=== PATIENT | male | born 1985 | race African-American/Black ===

== ENCOUNTER 2019-08-05 08:14 | Emergency (ER) | payer OTHER, SELFPAY ==
[2019-08-05 08:38] VITALS: BP 153/106; PULSE 92; RESP 18; TEMP 36.8; O2SAT 99
--- NOTE | 2019-08-05 08:46 | ED.HA ---
HPI - Headache General Chief Complaint: Urogenital-Male <DESI Barrera Last Filed: 08/05/19 09:49> Stated Complaint: MULT C/O <DESI Barrera Last Filed: 08/05/19 09:49> Time Seen by Provider: 08/05/19 08:32 <DESI Barrera Last Filed: 08/05/19 09:49> Source: patient <DESI Barrera Last Filed: 08/05/19 09:49> Mode of arrival: ambulatory <DESI Barrera Last Filed: 08/05/19 09:49> Limitations: no limitations <DESI Barrera Last Filed: 08/05/19 09:49> History of Present Illness HPI Narrative: This is a 34 year old male that presents to the ER for headache since last night. Reports pounding headache with blurry vision. Reports he has not taken anything for his symptoms. Also reports a toothache since last night. Reports a cracked tooth. Also reports that he was recently told by a sexual partner that they had chlamydia. Reports that over the last 5 days he has been having some penile discharge. Reports some burning with urination. Denies fever, cough, chest pain, shortness of breath, sore throat, vomiting, numbness, weakness, or abnormal penile lesions. <Yasmin Lemos PA-C - Last Filed: 08/05/19 09:49> Related Data Allergies/Adverse Reactions: Allergies Allergy/AdvReac Type Severity Reaction Status Date / Time No Known Allergies Allergy Verified 08/05/19 08:41 <DESI Barrera Last Filed: 08/05/19 09:49> Review of Systems Review of Systems: All systems reviewed & are unremarkable except as noted in HPI and below <DESI Barrera Last Filed: 08/05/19 09:49> Constitutional: Constitutional: Denies chills, Denies fever(s) and Denies weakness <DESI Barrera Last Filed: 08/05/19 09:49> Eyes: Eyes: Reports change in vision (blurry vision with headache) <DESI Barrera Last Filed: 08/05/19 09:49> ENT: Denies nasal congestion and Denies sore throat <DESI Barrera Last Filed: 08/05/19 09:49> Comments: Reports rhinorrhea <DESI Barrera Last Filed: 08/05/19 09:49> Cardiovascular: Cardiovascular: Denies chest pain <DESI Barrera Last Filed: 08/05/19 09:49> Respiratory: Respiratory: Denies cough and Denies dyspnea <DESI Barrera Last Filed: 08/05/19 09:49> Gastrointestinal: Gastrointestinal: Denies vomiting <DESI Barrera Last Filed: 08/05/19 09:49> Genitourinary: Genitourinary: Denies hematuria, Denies genital lesions, Reports dysuria and Reports penile discharge <DESI Barrera Last Filed: 08/05/19 09:49> Neurologic: Reports headache(s), Denies focal weakness and Denies numbness <DESI Barrera Last Filed: 08/05/19 09:49> [facility] Social History Social History: Social History (Updated 05/24/19 @ 21:33 by Doni Sheppard) Smoking packs per day: 1 Smoking cigarettes per day: 20.0 Smoking status: Current every day smoker Tobacco type: cigarettes Substance use: current Substance use type: marijuana and crack/cocaine Gender identity (if verbalized by the patient): Male <DESI Barrera Last Filed: 08/05/19 09:49> Exam Const: General: healthy appearing, no acute distress and alert <DESI Barrera Last Filed: 08/05/19 09:49> HENMT: Ears: Abnormal EAC present (moderate cerumen bilaterally) <DESI Barrera Last Filed: 08/05/19 09:49> Mouth: Yes Normal oral and palatal mucosa present <DESI Barrera Last Filed: 08/05/19 09:49> Teeth and gingiva: abnormal tooth and associated gingiva (tooth #5 is cracked, tender to palpation without surrounding erythema ) <DESI Barrera Last Filed: 08/05/19 09:49> Throat: posterior oropharynx normal and uvula midline <DESI Barrera Last Filed: 08/05/19 09:49> Eyes: Conjunctivae: conjunctivae normal <DESI Barrera Last Filed: 08/05/19 09:49> Pupils: Equal, round and reactive pupils present <Yasmin Youssef
[2019-08-05 09:08] LABS: Add Urine Microscopic? NO; Appearance Urine Clear (Clear); Bilirubin Urine Negative (Negative); Blood Urine Negative (Negative); Color Urine Yellow (Yellow); Glucose Urine UA Negative (Negative); Ketones Urine Negative (Negative); Leukocyte Esterase Ur Negative LEU/UL (Negative); Nitrate Urine Negative (Negative); Protein Urine Negative (Negative); Specific Grav Ur 1.015 (1.001-1.035); Urobilinogen Urine Negative mg/dL (<2.0)
[2019-08-05] MEDS: ACETAMINOPHEN 500 MG TABLET 1000 MG PO (09:20)
[2019-08-05] MEDS: KETOROLAC (*BKC) 60 MG/2 ML VIAL IM (09:21)
[2019-08-05] MEDS: cefTRIAXone 250 MG VIAL IM (09:47)
[2019-08-05] MEDS: metroNIDAZOLE 250 MG TABLET 2000 MG PO (09:48)
[2019-08-05] MEDS: LIDOCAINE HCL 1% LOCAL INJ 20 ML VIAL (09:48)
[2019-08-05] MEDS: AZITHROMYCIN 250 MG TABLET 1000 MG PO (09:48)
[2019-08-05 10:10] VITALS: BP 150/89; PULSE 86; RESP 16; O2SAT 98
== END 2019-08-05 10:11 | disposition home or self-care (01) ==
PROVIDERS: Physician Assistant; Emergency Provider Emergency Medicine
DX: G44.209 Tension-type headache, unspecified, not intractable (principal); K08.89 Other specified disorders of teeth and supporting structures; Z20.2 Contact with and (suspected) exposure to infections with a predominantly sexual mode of transmission; F17.210 Nicotine dependence, cigarettes, uncomplicated
CPT/HCPCS: 81003; 87491; 87591; 87661; 96372; 99284; A9270; J0696; J1885

== ENCOUNTER 2019-12-14 16:06 | Emergency (ER) | payer OTHER, SELFPAY ==
[2019-12-14 16:23] VITALS: BP 138/84; PULSE 106; RESP 16; TEMP 36.2; O2SAT 99
--- NOTE | 2019-12-14 16:34 | ED.GENADULT ---
HPI - General Adult General Chief complaint: Dental/Oral Stated complaint: swollen upper right gum Time Seen by Provider: 12/14/19 16:34 Source: patient Mode of arrival: ambulatory Limitations: no limitations History of Present Illness HPI narrative: 34-year-old male patient presents to the [facility] with complaints of right upper dental pain for the past 2 weeks. Patient states he knows he has a bad tooth but has not seen his dentist yet. Patient states the pain got really bad last night. Patient states he did take some Tylenol yesterday but states it really did not help with the pain. Patient denies any fevers, sore throat, chest pain or shortness of breath. Patient presents today also complaining of pain with urination and penile discharge for the last couple weeks. Patient denies any lesions or rashes. Patient states that he is with 1 partner but does not use protection all the time. Patient states that he has been having some yellow discharge and is concerned about possible STDs. Related Data Home Medications Medication Instructions Recorded Confirmed albuterol sulfate [ProAir HFA] INHALATION 12/14/19 Allergies Allergy/AdvReac Type Severity Reaction Status Date / Time No Known Allergies Allergy Verified 08/05/19 08:41 Review of Systems Review of Systems: Narrative: CONSTITUTIONAL: Denies fever, chills, or sweats. EYES: Denies visual changes, redness, or discharge. ENT: Denies rhinorrhea, congestion, sore throat, or otalgia. Positive right upper dental pain CARDIOVASCULAR: Denies chest pain, palpitations, or edema. RESPIRATORY: Denies cough or dyspnea. GASTROINTESTINAL: Denies abdominal pain, nausea, vomiting, or diarrhea. GENITOURINARY: Denies dysuria or hematuria. Positive pain with urination and penile discharge SKIN: Denies rash or itching. MUSCULOSKELETAL: Denies back pain, joint pain, or myalgia. NEUROLOGIC: Denies headache, numbness, or weakness. PSYCHIATRIC: Denies anxiety or depression. [facility] Past Medical History Medical History Anxiety Asthma Bronchitis Depression Genital warts GERD (gastroesophageal reflux disease) Gonorrhea History of bipolar disorder IBS (irritable bowel syndrome) Surgical History Surgical History History of urologic surgery Social History Social History Smoking packs per day: 1 Smoking cigarettes per day: 20.0 Smoking status: Current every day smoker Tobacco type: cigarettes Substance use: current Substance use type: marijuana and crack/cocaine Gender identity (if verbalized by the patient): Male Comments At the time of my signature I agree with nursing past medical history, surgical, social, and family history. There is no relevant family history pertinent to the presenting complaint. Exam Narrative: Exam Narrative: GENERAL: Well-appearing, well-nourished, and in no acute distress. HEAD: Normocephalic, atraumatic. EYES: PERRLA and EOMI. ENT: Nares clear, no rhinorrhea or epistaxis. Mucous membranes moist. Patient has slight erythema and tenderness noted to the right upper gum right above the right sided incisors. There is no obvious abscess palpated at this time. NECK: Supple. No lymphadenopathy CHEST: Clear to auscultation. No respiratory distress. HEART: Regular rate and rhythm. No murmur heard. Normal peripheral pulses. ABDOMEN: Soft, flat, nondistended. No guarding, rebound tenderness, or rigid. No pulsatilla masses. Slight discomfort noted to left lower quadrant abdominal palpation. Bowel sounds present in all four quadrants. No organomegaly. Negative Tariq?s sign. No periumbicial tenderness. No Supra public tenderness or distension. Good femoral pulses bilaterally. No hernia noted. No scars or surface trauma. No CVA tenderness on percussion EXTREMITIES: Normal range of motion. No
[2019-12-14] MEDS: AZITHROMYCIN 250 MG TABLET 1000 MG PO (17:00)
[2019-12-14] MEDS: cefTRIAXone 250 MG VIAL IM (17:00)
[2019-12-14] MEDS: LIDOCAINE HCL 1% LOCAL INJ 20 ML VIAL IM (17:01)
== END 2019-12-14 17:25 | disposition home or self-care (01) ==
PROVIDERS: Emergency Provider Nurse Practitioner Family
DX: K02.9 Dental caries, unspecified (principal); R03.0 Elevated blood-pressure reading, without diagnosis of hypertension; R36.9 Urethral discharge, unspecified; J45.909 Unspecified asthma, uncomplicated; F17.210 Nicotine dependence, cigarettes, uncomplicated
CPT/HCPCS: 81003; 87491; 87591; 87661; 96372; 99213; A9270; G0463; J0696

== ENCOUNTER 2020-05-16 15:07 | Inpatient (IN) | payer OTHER, SELFPAY ==
--- NOTE | ~2020-05-16 | XR_ITS ---
EXAMINATION: XR chest 1V portable DATE: 05/17/2020 09:09 INDICATION: Inflammation of the lungs. TECHNIQUE: A single frontal view of the chest was obtained on 2 radiographs. COMPARISON: Chest 2 views 02/04/2019, CT abdomen and pelvis 05/16/2020 FINDINGS: Again seen is mild scarring in the upper lobes. No pleural effusion or pneumothorax. The he art size is normal. IMPRESSION: 1. Mild scarring in the upper lobes. Reviewed, dictated and finalized at location A. D ATTENDANT
--- NOTE | ~2020-05-16 | CT_ITS ---
EXAMINATION: CT abdomen pelvis w con DATE: 05/16/2020 16:29 INDICATION: Right-sided abdominal pain and back pain. Constipation and nausea. TECHNIQUE: Computed tomography (CT) of the abdomen and pelvis was performed with 100 mL Omnipaque 350 intravenous contrast. Automated exposure control and iterative reconstruction technique were employe d. The dose-length product was 1064.53 mGy-cm. COMPARISON: CT abdomen and pelvis 10/30/2012 FINDINGS: The visualized portions of the lung bases demonstrate mild atelectasis and scarring. There are mild tree-in-bud opacities in the lower lobes, right middle lobe, and lingula, consistent with in flammation versus infection. No pleural effusion. The heart size is normal. No pericardial effusion. The liver, gallbladder, spleen, pancreas, and adrenal glands are normal. There is cortical thinning o f the kidneys. There are cysts in the kidneys measuring up to 5 mm. There are no dilated loops of bow el. The appendix is normal. There are no pathologically enlarged lymph nodes. There is no free intrap eritoneal fluid. There is mild lumbar spondylosis. IMPRESSION: 1. No specific etiology for the patient's symptoms. 2. Mild bilateral lung disease that may be inflammation or infection. Note that this pattern is not s uspicious for COVID-19 pneumonia. Reviewed, dictated and finalized at location A. GRINDER SET UP OPERATOR IMPRESSION: 1. No specific etiology for the patient's symptoms. 2. Mild bilateral lung disease that may be inflammation or infection. Note that this pattern is not suspicious for COVID-19 pneumonia.
--- NOTE | ~2020-05-16 | US_ITS ---
US right upper quadrant INDICATION: Pancreatitis PROCEDURE: Realtime right upper abdominal ultrasound. COMPARISON: No prior studies for comparison. FINDINGS: The pancreas is normal without focal mass or pancreatic ductal dilation. There is a small 5 mm echogenic mass right hepatic lobe, most likely benign hemangioma. There is normal directional f low in the portal vein. The gallbladder is normal without stones, gallbladder wall thickening or pericholecystic fluid. Comm on bile duct measures 2 mm. No sonographic Tariq's sign. Right renal echotexture is unremarkable. IMPRESSION: 1: 5 mm echogenic mass right hepatic lobe, most likely benign hemangioma. Recommend follow-up ultraso und in 6-12 months to assess stability. Reviewed, dictated and finalized at location A. TRUCKER IMPRESSION: 1: 5 mm echogenic mass right hepatic lobe, most likely benign hemangioma. Recom mend follow-up ultrasound in 6-12 months to assess stability.
[2020-05-16 15:14] VITALS: BP 138/90; PULSE 83; RESP 18; TEMP 36.9; O2SAT 98
[2020-05-16 15:37] LABS: Basophils Percent Auto 0.7 % (0.2-1.2); Eosinophils Absolute Auto 0.3 K/mm3 (0-0.3); Eosinophils Percent Auto 4.7 % (0-4.4); Hemoglobin 16.1 g/dL (14.0-18.0); Immature Granulocyte Absolute 0.01 K/mm3 (0.00-0.031); Immature Granulocyte Percent A 0.2 % (0-0.5); Lymphocytes Absolute Auto 2.86 K/mm3 (0.9-3.2); Lymphocytes Percent Auto 46.5 % (18.3-44.2); Mean Corpuscular HGB Conc 33.5 g/dl (32-36); Mean Corpuscular Hemoglobin 29.5 pg (26-34); Mean Corpuscular Volume 87.9 fl (80-100); Mean Platelet Volume 9.1 fl (7.4-10.4); Monocytes Absolute Auto 0.5 K/mm3 (0.1-0.6); Monocytes Percent Auto 8.1 % (2.6-8.5); Neutrophils Absolute Auto 2.5 K/mm3 (1.3-6.7); Neutrophils Percent Auto 39.8 % (45.5-73.1); Platelet Count Result 231 k/mm3 (150-375); Red Blood Count 5.46 M/mm3 (4.6-6.20); Red Cell Distribution Width 11.9 % (11.5-14.5); White Blood Count 6.2 K/mm3 (4.5-10.0)
[2020-05-16 15:38] LABS: Add Urine Microscopic? NO; Appearance Urine Clear (Clear); Bilirubin Urine Negative (Negative); Blood Urine Negative (Negative); Color Urine Yellow (Yellow); Glucose Urine UA Negative (Negative); Ketones Urine Negative (Negative); Leukocyte Esterase Ur Negative LEU/UL (Negative); Nitrate Urine Negative (Negative); Protein Urine Negative (Negative); Specific Grav Ur 1.024 (1.001-1.035); Urobilinogen Urine Negative mg/dL (<2.0)
[2020-05-16] MEDS: SODIUM CHLORIDE 0.9% IV 1,000 ML 999 ML IV CONT ×2 (15:43→17:17)
[2020-05-16] MEDS: KETOROLAC 30 MG/ML VIAL (*BKC) IV PUSH (15:44)
[2020-05-16] MEDS: ONDANSETRON INJ 4 MG/2 ML VIAL IV PUSH (15:44)
[2020-05-16 15:50] LABS: Alanine Aminotransferase 24 U/L (4-50); Albumin Level 4.3 g/dL (3.5-5.1); Alkaline Phosphatase 50 U/L (38-126); Anion Gap 6 mmol/L (8-16); Aspartate Amino Transferase 25 U/L (17-59); Bilirubin,Total 1.3 mg/dL (0.2-1.3); Blood Urea Nitrogen 10 mg/dL (9-20); Calcium 9.4 mg/dL (8.4-10.2); Carbon Dioxide 29 mmol/L (22-30); Chloride 105 mmol/L (98-107); Estimated CRCL calculation 131 ml/min; Estimated Glomerular Filt Rate > 60; Glucose 98 mg/dL (75-110); Lipase 1888 U/L (23-300); Sodium 140 mmol/L (137-145)
--- NOTE | 2020-05-16 16:12 | ED.GENADULT ---
HPI - General Adult General Chief complaint: Abdominal Pain Stated complaint: lower back pain/ alot of gas in ABD 2 weeks Time Seen by Provider: 05/16/20 15:20 Source: RN notes reviewed History of Present Illness HPI narrative: Patient presents emergency department from home for abdominal pain. Patient states symptoms began 10 days ago. Pain is located cross the upper mid abdomen with radiation to the back. States his associate with nausea any fevers or chills chest pain shortness of breath vomiting diarrhea or any other symptoms. Patient states he has been taking [id number] medication for pain at home but does not take anything today Related Data Home Medications Medication Instructions Recorded Confirmed albuterol sulfate [ProAir HFA] INHALATION 12/14/19 Allergies Allergy/AdvReac Type Severity Reaction Status Date / Time No Known Allergies Allergy Verified 05/16/20 15:23 Review of Systems Review of Systems: Narrative: Gen.: Denies fevers or chills ENT: Denies congestion Respiratory: Denies shortness of breath or cough CV: Denies chest pain or palpitations GI: See HPI denies burning, urgency, frequency or hematuria Musculoskeletal: Denies back pain or muscle pain Neuro: Denies numbness, tingling, weakness or focal weakness Skin: Denies rash Except as documented, all other systems reviewed and negative [facility] Past Medical History Medical History (Updated 05/16/20 @ 16:57 by Jeremy Schumacher DO) Anxiety Asthma Bronchitis Depression Genital warts GERD (gastroesophageal reflux disease) Gonorrhea History of bipolar disorder IBS (irritable bowel syndrome) Surgical History Surgical History History of urologic surgery Social History Social History Smoking packs per day: 1 Smoking cigarettes per day: 20.0 Smoking status: Current every day smoker Tobacco type: cigarettes Substance use: current Substance use type: marijuana and crack/cocaine Gender identity (if verbalized by the patient): Male Exam Narrative: Exam Narrative: APPEARANCE: No acute distress, nontoxic, resting in bed HEENT: Normocephalic, atraumatic, OMM RESPIRATORY: No respiratory distress, clear to auscultation bilaterally with no rhonchi wheezing or rales CARDIOVASCULAR: RRR s murmur ABDOMINAL: Soft, nondistended, temporal patient epigastric, right upper quadrant left lower quadrant no tenderness right lower quadrant left lower quadrant no rebound or guarding MUSCULOSKELETAl: Moves all extremities. No clubbing, cyanosis or edema. NEURO: Awake and alert. Following commands, speech normal, no focal deficits SKIN:: Warm, dry. Normal Color PSYCHIATRIC: Normal affect/mood Course Course Emergency Course: Discussed with patient he denies any regular alcohol use or NSAID use At this time patient is also noticing concern of STD. States he had protected sex several weeks ago and states he has been having some burning with urination and requesting treatment at this time secondary to the patient's pancreatitis I will obtain a urine chlamydia and gonorrhea RNA test will hold p.o. azithromycin until pancreatitis is improved Discussed with SANDRA Zuniga for Dr. Mclain presentation work-up agrees with admission at this time. We did discuss the patient's concern of STD RNA testing has been sent and they will treat the patient following treatment of his pancreatitis Discussed with patient results of work-up and diagnosis discussed need for admission agrees at this time all questions answered Vital Signs Vital signs: Vital Signs Temperature 98.4 F 05/16/20 15:14 Pulse Rate 83 05/16/20 15:14 Respiratory Rate 18 05/16/20 15:14 Blood Pressure 138/90 05/16/20 15:14 Pulse Oximetry 98 05/16/20 15:14 Temperature 98.4 F 05/16/20 15:14 Pulse Rate 83 05/16/20 15:14 Respiratory Rate 18 05/16/20 15:14 Blo
[2020-05-16 17:28] VITALS: BP 136/88; PULSE 88; RESP 16; O2SAT 100
[2020-05-16 18:10] VITALS: BMI 32.6
[2020-05-16] MEDS: SODIUM CHLORIDE 0.9% IV 1,000 ML 150 ML IV CONT (18:15)
[2020-05-16 18:25] VITALS: PULSE 61; RESP 18; O2SAT 100
[2020-05-16 18:46] VITALS: BP 122/74; PULSE 61; RESP 18; TEMP 37.1; O2SAT 100
[2020-05-16 22:45] VITALS: BP 123/82; PULSE 67; RESP 16; TEMP 37.2; O2SAT 97
--- NOTE | 2020-05-16 23:45 | PM.IMHP ---
H&P: HPI History of Present Illness Date/Time: 05/16/20 23:45 Chief Complaint: Abdominal pain Narrative: Rohith Bardales is a 34 year old male who stated that he used to drink heavily. But not every day. The patient stated he drank about 1 week ago very heavily. He stated that he did developed this abdominal pain shortly after that. The patient stated that every time he ate something felt distended and felt that there was a knot in his epigastric area. By not eating he made himself feel better. The patient stated he has a or drink anything in a couple days. He was nauseated but did not vomit or have any diarrhea not had any fever chills. The patient has had Trichomonas and chlamydia in the past and was treated for that in the past. Patient stated he recently had unprotected sex and he is having discharge and burning when he urinates he feels as though he may have a sexually transmitted disease. Patient was given his prescription for oral antibiotics when he is discharged. However did not give him any antibiotics at this time and he has cultures that are pending. Patient was made NPO and he requested some ice chips so I was able to provide was some ice chips. However explained to him that if he had any further discomfort that we would hold off on given him any more ice chips. We will check his lipase in the morning. The patient still has a gallbladder on but has not had any problems with his gallbladder in the past. He has not had any hyperlipidemia either. The only medical problem the patient has his asthma and occasionally uses an inhaler. The patient does use marijuana but denies using any crack or cocaine. He said he has used cocaine in the past but not recently. Pain is in his upper abdomen echo Amando to his back. The patient has been afebrile. CT of the abdomen pelvis read no specific etiology for patient's symptoms. Mild bilateral lung disease that may be inflammation or infection note that this pattern is not suspicious for covid 19 pneumonia. Patient's lipase was noted to be 1888. The patient has not had any emesis he has been nauseated but no vomiting. Patient is being admitted to observation status on the date of service 05/16/2020. Review of Systems Review of Systems: All systems reviewed & are unremarkable except as noted in HPI and below Constitutional: Constitutional: Reports as per HPI and Reports no additional constitutional complaints Eyes: Eyes: Reports as per HPI and Reports no additional eye complaints ENT: Reports system reviewed and no additional complaints, except as documented and Reports Normal hearing present Cardiovascular: Cardiovascular: Reports no additional cardiovascular complaints Respiratory: Respiratory: Reports no additional respiratory complaints and Reports no additional respiratory complaints Gastrointestinal: Gastrointestinal: Reports as per HPI and Reports no additional gastrointestinal complaints Musculoskeletal: Musculoskeletal: Reports no additional musculoskeletal complaints Integumentary/Breasts: Skin/Breast: Reports system reviewed and no additional complaints, except as docu and Reports as per HPI Neurologic: Reports system reviewed and no additional complaints, except as documented, Reports as per HPI and Reports Normal hearing present Psychiatric: Psychiatric: Reports no additional psychiatric complaints and Reports as per HPI Endocrine: Endocrine: Reports no additional endocrine complaints Hematologic/Lymphatic: Hematologic/Lymphatic: Reports no additional hematologic/lymphatic complaints Allergic/Immunologic: Allergic/Immunologic: Reports no additional allergic/immunologic complaints [facility] Past Medical History Medical History (Updated 05/16/20 @ 23:57 by Nadia Huggins NP) Anxiety Asthma Bronchitis Depression Genital warts GERD (gastroesophageal reflux disease) Gonorrhea History of bipolar disorder IBS (irritable bowel syndrome) Surgical History Surgical Hi
[2020-05-17] VITALS (7 sets, daily range): BP systolic 113–126; BP diastolic 61–89; PULSE 65–80; RESP 16–20; TEMP 36.1–37.1; O2SAT 94–99
[2020-05-17] MEDS: NICOTINE (*PBKC) 14 MG PATCH 1 PATCH TRANSDERM (00:29)
[2020-05-17] MEDS: SODIUM CHLORIDE 0.9% IV 1,000 ML 150 ML IV CONT ×4 (00:31→22:18)
[2020-05-17 05:45] LABS: Basophils Percent Auto 0.4 % (0.2-1.2); Eosinophils Absolute Auto 0.3 K/mm3 (0-0.3); Eosinophils Percent Auto 4.8 % (0-4.4); Hemoglobin 13.5 g/dL (14.0-18.0); Immature Granulocyte Absolute 0.01 K/mm3 (0.00-0.031); Immature Granulocyte Percent A 0.1 % (0-0.5); Lymphocytes Absolute Auto 2.85 K/mm3 (0.9-3.2); Lymphocytes Percent Auto 41.4 % (18.3-44.2); Mean Corpuscular HGB Conc 33.8 g/dl (32-36); Mean Corpuscular Hemoglobin 29.7 pg (26-34); Mean Corpuscular Volume 88.1 fl (80-100); Mean Platelet Volume 9.2 fl (7.4-10.4); Monocytes Absolute Auto 0.5 K/mm3 (0.1-0.6); Monocytes Percent Auto 7.1 % (2.6-8.5); Neutrophils Absolute Auto 3.2 K/mm3 (1.3-6.7); Neutrophils Percent Auto 46.2 % (45.5-73.1); Platelet Count Result 194 k/mm3 (150-375); Red Blood Count 4.54 M/mm3 (4.6-6.20); Red Cell Distribution Width 11.6 % (11.5-14.5); White Blood Count 6.9 K/mm3 (4.5-10.0)
[2020-05-17 06:01] LABS: Alanine Aminotransferase 18 U/L (4-50); Albumin Level 3.3 g/dL (3.5-5.1); Alkaline Phosphatase 43 U/L (38-126); Anion Gap 4 mmol/L (8-16); Aspartate Amino Transferase 20 U/L (17-59); Bilirubin,Total 1.5 mg/dL (0.2-1.3); Blood Urea Nitrogen 9 mg/dL (9-20); Calcium 8.5 mg/dL (8.4-10.2); Carbon Dioxide 28 mmol/L (22-30); Chloride 104 mmol/L (98-107); Cholesterol 122 mg/dL (0-200); Estimated CRCL calculation 142 ml/min; Estimated Glomerular Filt Rate > 60; Glucose 83 mg/dL (75-110); HDL Direct 28 mg/dL; Potassium 3.6 mmol/L (3.4-5.0); Sodium 136 mmol/L (137-145); Triglycerides 106 mg/dL (<150)
[2020-05-17 06:12] LABS: LDL Cholesterol Direct 65 mg/dL
--- NOTE | 2020-05-17 08:45 | PC.NURSE ---
DR. ALMEIDA HERE TO SEE PT. CONDITION UPDATE GIVEN. ORDERS RECEIVED TO GET PCXR AND CONSULT GI.
--- NOTE | 2020-05-17 09:10 | PC.NURSE ---
DOWN VIA WC FOR R. UQ US. DENIES ABDOMINAL PAIN, BACK PAIN OR NAUSEA THIS AM. IVF'S CONTINUE ORDERED.
--- NOTE | 2020-05-17 09:20 | PC.NURSE ---
GI CONSULT CALLED TO DR. HA.
[2020-05-17] MEDS: ALBUTEROL SULFATE (*SP) AEROSOL 1 PUFF 2 PUFF INHALATION ×2 (10:05→20:00)
--- NOTE | 2020-05-17 10:20 | PC.NURSE ---
DR. ALMEIDA RETURNS. RESULTS OF PCXR AND RUQ ABDOMEN US GIVEN. ORDER FOR CLEAR LIQ DIET RECEIVED.
[2020-05-17] MEDS: ENOXAPARIN 40 MG/0.4 ML SYRINGE SUB-Q (11:20)
--- NOTE | 2020-05-17 13:50 | PC.NURSE ---
DR. HA HERE TO SEE PT. RESULTS OF RUQ ABD. US GIVEN. TOLERATED CLEAR LIQUID DIET WELL. NO NEW C/O VOICED.
--- NOTE | 2020-05-17 14:46 | WPDGICN ---
Assessment and Plan Assessment and plan (1) Acute pancreatitis: Code(s): K85.90 - Acute pancreatitis without necrosis or infection, unspecified Status: Acute Assessment and Plan: mild, history of alcohol use normal liver enzymes, reviewed CT scan given nausea, will proceed with egd tomorrow to check for gastritis, ulcers, etc (2) Nausea: Code(s): R11.0 - Nausea Status: Acute Assessment and Plan: antiemetics prn, on liquid diet for now (3) Asthma: Code(s): J45.909 - Unspecified asthma, uncomplicated Status: Chronic GI Consult Note Consult date/time: 05/17/20 14:46 Reason for consult: nausea, elevated lipase HPI: Rohith Bardales is a 34 year old male with history of binge drinking, last time for New Year. He had epigastric discomfort with nausea without vomiting worse after eating with sensation of distension and knot in his epigastric area for last few days, not eating much because of same. Blood work showed lipase 1800, CT scan was unremarkable, ultrasound 5 mm echogenic mass right hepatic lobe, most likely benign hemangioma. Never had pancreatitis. Review of Systems Constitutional: Constitutional: Denies headache(s) and Denies weakness Eyes: Eyes: Denies blurry vision ENT: Reports Normal hearing present, Denies headache(s) and Denies neck pain Cardiovascular: Cardiovascular: Denies chest pain and Denies dyspnea Respiratory: Respiratory: Denies dyspnea Gastrointestinal: Gastrointestinal: Reports no additional gastrointestinal complaints Genitourinary: Genitourinary: Denies dysuria Musculoskeletal: Musculoskeletal: Denies neck pain Integumentary/Breasts: Skin/Breast: Denies dry skin Neurologic: Reports Normal hearing present, Denies headache(s) and Denies weakness Psychiatric: Psychiatric: Denies anxiety Endocrine: Endocrine: Denies change in body appearance Hematologic/Lymphatic: Hematologic/Lymphatic: Denies easy bleeding Allergic/Immunologic: Allergic/Immunologic: Denies urticaria PMFSH Past Medical History Medical History (Updated 05/17/20 @ 14:51 by Rk Purvis MD) Anxiety Asthma Bronchitis Depression Genital warts GERD (gastroesophageal reflux disease) Gonorrhea History of bipolar disorder IBS (irritable bowel syndrome) Nausea Surgical History Surgical History History of urologic surgery Family History Family History Daughter Asthma Mother Hypertension Social History Social History (Updated 05/16/20 @ 23:51 by Nadia Huggins NP) Social History: The patient is single and he has 3 children. He lives with his aunt and his anti is the durable power employment law attorney for healthcare. The patient desires to be a full code. Patient states that he does use marijuana and that he used to drink heavily but only drinks on occasion. But he states when he does drink he is in large amounts. He stated that he drinks about 1 week ago. Smoking packs per day: 1 Smoking cigarettes per day: 20.0 Smoking status: Heavy tobacco smoker Tobacco type: cigarettes Alcohol intake: former Drinks per week: 2 Substance use: current Substance use type: marijuana, crack/cocaine and prescription drug Other substance usage details: promethazine with codeine Gender identity (if verbalized by the patient): Male Spiritual care concerns: No Meds Home Medications and Allergies Home Medications Medication Instructions Recorded Confirmed Type albuterol sulfate [ProAir HFA] 90 mcg INHALATION BID 12/14/19 05/16/20 History Allergies Allergy/AdvReac Type Severity Reaction Status Date / Time coconut Allergy Swelling Verified 05/16/20 19:20 of Lip/Tongue/Throat lettuce Allergy Swelling Verified 05/16/20 19:20 of Lip/Tongue/Throat Vital Signs Vital Signs - 24 hr 05/16/20 15:14
--- NOTE | 2020-05-17 18:18 | PM.IMPN ---
Progress Note: A&P Assessment and Plan (1) Nausea: Code(s): R11.0 - Nausea Status: Acute Assessment and Plan: Likely secondary to pancreatitis/binge drinking. (2) Asthma: Code(s): J45.909 - Unspecified asthma, uncomplicated Status: Chronic Assessment and Plan: Stable. (3) Acute pancreatitis: Code(s): K85.90 - Acute pancreatitis without necrosis or infection, unspecified Status: Acute Assessment and Plan: Stable CT abd/pelvis reviewed GI consult appreciated (4) Urinary dysfunction: Code(s): R39.198 - Other difficulties with micturition Status: Acute Assessment and Plan: Started on Levofloxacin for burning with urination. Subjective Date/time seen: 05/17/20 18:18 Epigastric discomfort. Review of Systems Review of Systems: Narrative: Epigastric discomfort, n/v. Constitutional: Comments: no fevers, no rigors, no chills. ENT: Comments: no throat pain. Cardiovascular: Comments: no chest pain. Respiratory: Comments: no sob, no cough, no sputum production. Gastrointestinal: Comments: epigastric pain, n/v Genitourinary: Genitourinary: Reports dysuria Musculoskeletal: Musculoskeletal: Reports no additional musculoskeletal complaints Integumentary/Breasts: Comments: no rashes. Neurologic: Comments: no tremors. Exam Narrative: Exam Narrative: Lying in bed. Const: General: cooperative, healthy appearing, comfortable, alert, awake and Physically active Nutritional Appearance: average body habitus Orientation/consciousness: patient oriented x3 Limitations: no limitations HENMT: Head: normocephalic and atraumatic Ears: hearing grossly normal bilaterally General nose exam: Normal external nose present Eyes: General: appearance normal, both eyes and all related structures Pupils: Equal, round and reactive pupils present EOM: EOMs intact bilaterally Neck: Neck: no lymphadenopathy, supple and no JVD Resp: Auscultation: clear to auscultation bilaterally Cardio: Jugular venous distension: no JVD Rate: regular rate Rhythm: regular rhythm GI: GI Palp: Yes Soft to palpation and Yes No hepatosplenomegaly present Skin: General skin exam: normal color Neuro: General: patient oriented x3 and CN's II-XI intact bilaterally Cranial nerves: Yes CN's II-XII intact bilaterally and Yes Equal, round and reactive pupils present Cognition (Neuro): normal cognition Speech: normal speech Motor exam (neuro): 5/5 motor strength present throughout Extrem: General: full ROM and no pedal edema Objective Data Vital Signs Vital Signs: Vital Signs - 24 hr 05/16/20 18:25 05/16/20 18:46 05/16/20 22:45 Temperature 98.8 F 98.9 F Pulse Rate 61 61 67 Respiratory Rate 18 18 16 Blood Pressure 122/74 123/82 Pulse Oximetry 100 100 97 05/17/20 05:55 05/17/20 08:00 05/17/20 10:10 Temperature 98.7 F 98.5 F Pulse Rate 72 72 Respiratory Rate 16 16 Blood Pressure 126/75 115/74 Pulse Oximetry 95 94 96 05/17/20 13:45 Temperature 97.9 F Pulse Rate 80 Respiratory Rate 18 Blood Pressure 113/61 Pulse Oximetry 95 Intake/Output Intake/Output: Intake & Output 05/14/20 05/15/20 05/16/20 05/17/20 23:59 23:59 23:59 23:59 Intake Total 2000 3960 Output Total 200 2200 Balance 1800 1760 Meds/Results Medications: Active Medications Generic Name Dose Route Start Last Admin Trade Name Freq PRN Reason Stop Dose Admin Albuterol 2 puff 05/17/20 09:00 05/17/20 10:05 Albuterol Sulfate (*Sp) Aerosol 1 Puff INHALATION 2 puff BID ABAD Administration Enoxaparin Sodium 40 mg 05/17/20 09:00 05/17/20 11:20 Enoxaparin 40 Mg/0.4 Ml Syringe SUB-Q 40 mg DAILY ABAD Administration Sodium Chloride 1,000 mls @ 150 mls/hr 05/16/20 16:55 05/17/20 15:36 Normal Saline Iv IV CONT 150 mls/hr .Q6H40M ABAD Administration Levofloxacin 750 mg 05/18/20 09:00 Levofloxacin Tab 750 Mg Tablet PO DAILY [facility] Nicoti
--- NOTE | 2020-05-17 19:04 | WPDANESEPP ---
Anes - Eval Pre Procedure Procedure: Operation Date: 05/18/20 08:45 Proposed Procedures p Esophagogastroduodenoscopy - Rk Purvis MD Date/Time: 05/17/20 19:04 Pre Op Diagnosis: Acute pancreatitis Patient Data Age: 34 Gender: M Height: 6 ft 3 in Weight: 118.5 kg Last Vital Signs Temp 97.9 F 05/17/20 13:45 Pulse 80 05/17/20 13:45 Resp 18 05/17/20 13:45 BP 113/61 05/17/20 13:45 Pulse Ox 95 05/17/20 13:45 Allergies Allergy/AdvReac Type Severity Reaction Status Date / Time coconut Allergy Swelling Verified 05/16/20 19:20 of Lip/Tongue/Throat lettuce Allergy Swelling Verified 05/16/20 19:20 of Lip/Tongue/Throat Home Medications Medication Instructions Recorded Confirmed Type albuterol sulfate [ProAir HFA] 90 mcg INHALATION BID 12/14/19 05/16/20 History Laboratory Tests 05/17/20 05/17/20 05:37 05:37 WBC 6.9 K/mm3 K/mm3 (4.5-10.0) RBC 4.54 M/mm3 L M/mm3 (4.6-6.20) Hgb 13.5 g/dL L g/dL (14.0-18.0) Hct 40.0 % L % (42.0-52.0) MCV 88.1 fl fl (80-100) MCH 29.7 pg pg (26-34) MCHC 33.8 g/dl g/dl (32-36) RDW 11.6 % % (11.5-14.5) Plt Count 194 k/mm3 k/mm3 (150-375) MPV 9.2 fl fl (7.4-10.4) Immature Gran % (Auto) 0.1 % % (0-0.5) Neut % (Auto) 46.2 % % (45.5-73.1) Lymph % (Auto) 41.4 % % (18.3-44.2) [place] % (Auto) 7.1 % % (2.6-8.5) Eos % (Auto) 4.8 % H % (0-4.4) Baso % (Auto) 0.4 % % (0.2-1.2) Lymph # (Auto) 2.85 K/mm3 K/mm3 (0.9-3.2) [place] # (Auto) 0.5 K/mm3 K/mm3 (0.1-0.6) Eos # (Auto) 0.3 K/mm3 K/mm3 (0-0.3) Baso # (Auto) 0.0 K/mm3 K/mm3 (0.0-0.1) Abs Immat Gran (auto) 0.01 K/mm3 K/mm3 (0.00-0.031) Absolute Neuts (auto) 3.2 K/mm3 K/mm3 (1.3-6.7) Absolute Nucleated RBC 0.0 K/mm3 K/mm3 (0.0-0.012) Nucleated RBC % 0.0 % % (0.0-0.2) Sodium 136 mmol/L L mmol/L (137-145) Potassium 3.6 mmol/L mmol/L (3.4-5.0) Chloride 104 mmol/L mmol/L (98-107) Carbon Dioxide 28 mmol/L mmol/L (22-30) Anion Gap 4 mmol/L L mmol/L (8-16) BUN 9 mg/dL mg/dL (9-20) Creatinine 0.90 mg/dL mg/dL (0.7-1.3) Estim Creat Clear Calc 142 ml/min ml/min Estimated GFR > 60 (59 - ) Glucose 83 mg/dL mg/dL (75-110) Calcium 8.5 mg/dL mg/dL (8.4-10.2) Total Bilirubin 1.5 mg/dL H mg/dL (0.2-1.3) AST 20 U/L U/L (17-59) ALT 18 U/L U/L (4-50) Alkaline Phosphatase 43 U/L U/L (38-126) Total Protein 6.0 g/dL L g/dL (6.3-8.2) Albumin 3.3 g/dL L g/dL (3.5-5.1) Triglycerides 106 mg/dL mg/dL (<150) Cholesterol 122 mg/dL mg/dL (0-200) LDL Cholesterol Direct 65 mg/dL mg/dL HDL Direct 28 mg/dL mg/dL Patient hx anesthesia problems: none Family hx anesthesia problems: none PMF Past Medical History Medical History Acute pancreatitis Anxiety Asthma Bronchitis Depression Drug abuse and dependence EtOH dependence Genital warts GERD (gastroesophageal reflux disease) Gonorrhea History of bipolar disorder IBS (irritable bowel syndrome) Nausea Tobacco abuse Urinary dysfunction Surgical History Surgical History History of urologic surgery Family History Family History Daughter Asthma Mother Hypertension Social History Social History (Updated 05/16/20 @ 23:51 by Nadia Huggins NP) Social History: The patient is single and he has 3 children. He lives with his aunt and his anti is the durable power employment law attorney for healthcare. The patient desires to be a full code. Patient states that he does use marijuana and that he used to drink heavily but
[2020-05-18 05:00] VITALS: BP 124/73; PULSE 70; RESP 16; TEMP 36.1; O2SAT 97
[2020-05-18] MEDS: SODIUM CHLORIDE 0.9% IV 1,000 ML 150 ML IV CONT (05:01)
[2020-05-18] MEDS: LACTATED RINGERS 1,000 ML 150 ML IV CONT (07:51)
[2020-05-18 07:52] VITALS: BP 124/93; PULSE 62; RESP 16; TEMP 36.9; O2SAT 100
--- NOTE | 2020-05-18 08:08 | WPDANESEPPF ---
Anes - Initial Pre Proc Eval Procedure: Operation Date: 05/18/20 08:45 Proposed Procedures p Esophagogastroduodenoscopy - Rk Purvis MD Date/Time: 05/18/20 08:08 Surgeon: David Claudio MD Pre Op Diagnosis: Acute pancreatitis Patient Data Age: 34 Gender: M Height: 6 ft 3 in Weight: 118.5 kg Last Vital Signs Temp 98.4 F 05/18/20 07:52 Pulse 62 05/18/20 07:52 Resp 16 05/18/20 07:52 BP 124/93 H 05/18/20 07:52 Pulse Ox 100 05/18/20 07:52 Allergies Allergy/AdvReac Type Severity Reaction Status Date / Time coconut Allergy Swelling Verified 05/16/20 19:20 of Lip/Tongue/Throat lettuce Allergy Swelling Verified 05/16/20 19:20 of Lip/Tongue/Throat Home Medications Medication Instructions Recorded Confirmed Type albuterol sulfate [ProAir HFA] 90 mcg INHALATION BID 12/14/19 05/16/20 History Patient hx anesthesia problems: none Family hx anesthesia problems: none PMFSH Past Medical History Medical History Acute pancreatitis Anxiety Asthma Bronchitis Depression Drug abuse and dependence EtOH dependence Genital warts GERD (gastroesophageal reflux disease) Gonorrhea History of bipolar disorder IBS (irritable bowel syndrome) Nausea Tobacco abuse Urinary dysfunction Surgical History Surgical History History of urologic surgery Family History Family History Daughter Asthma Mother Hypertension Social History Social History (Updated 05/16/20 @ 23:51 by Nadia Huggins NP) Social History: The patient is single and he has 3 children. He lives with his aunt and his anti is the durable power district attorney for healthcare. The patient desires to be a full code. Patient states that he does use marijuana and that he used to drink heavily but only drinks on occasion. But he states when he does drink he is in large amounts. He stated that he drinks about 1 week ago. Smoking packs per day: 1 Smoking cigarettes per day: 20.0 Smoking status: Heavy tobacco smoker Tobacco type: cigarettes Alcohol intake: former Drinks per week: 2 Substance use: current Substance use type: marijuana, crack/cocaine and prescription drug Other substance usage details: promethazine with codeine Gender identity (if verbalized by the patient): Male Spiritual care concerns: No Anes - Eval Final PreProcedure Day of Procedure 05/18/20 08:08 Patient weight: overweight Heart: regular rate and rhythm Lungs: clear to auscultation Airway: Mallampati scale class II Neurological: alert and oriented Last oral intake: >/= 8 hours ASA classification: III Emergent: no Anesthetic plan: proceed Anesthesia type and monitoring: general GIVS and standard monitoring Informed Consent: The patient's anesthetic plan and its attendant risks and benefits were discussed with the patient/family/POA. Questions were solicited and answers provided to the satisfaction of the patient/family/POA.
[2020-05-18] MEDS: BENZOCAINE (*SP) 60 ML SPRAY CAN (HURRICAINE) 1 SPRAY MUCOUS MEM (09:27)
[2020-05-18 09:29] VITALS: BP 120/81; PULSE 84; RESP 20; O2SAT 95
[2020-05-18 09:39] VITALS: BP 122/80; PULSE 80; RESP 23; O2SAT 94
[2020-05-18 09:49] VITALS: BP 125/81; PULSE 71; RESP 20; O2SAT 96
[2020-05-18] MEDS: NICOTINE (*PBKC) 14 MG PATCH 1 PATCH TRANSDERM (10:57)
[2020-05-18] MEDS: ENOXAPARIN 40 MG/0.4 ML SYRINGE SUB-Q (10:58)
--- NOTE | 2020-05-18 11:36 | PM.DS ---
DS: Admitting Diagnosis Admitting Diagnosis Admitting Diagnosis: (1) Acute pancreatitis: Code(s): K85.90 - Acute pancreatitis without necrosis or infection, unspecified Status: Acute Assessment and Plan: (2) Asthma: Code(s): J45.909 - Unspecified asthma, uncomplicated Status: Chronic Assessment and Plan: (3) Urinary dysfunction: Code(s): R39.198 - Other difficulties with micturition Status: Acute DS: Discharge Diagnosis Discharge Diagnosis (1) GERD (gastroesophageal reflux disease): Code(s): K21.9 - Gastro-esophageal reflux disease without esophagitis Status: Acute (2) Acute pancreatitis: Code(s): K85.90 - Acute pancreatitis without necrosis or infection, unspecified Status: Acute (3) Urinary dysfunction: Code(s): R39.198 - Other difficulties with micturition Status: Acute (4) Nausea: Code(s): R11.0 - Nausea Status: Acute (5) Asthma: Code(s): J45.909 - Unspecified asthma, uncomplicated Status: Chronic (6) Tobacco abuse: Code(s): Z72.0 - Tobacco use Status: Inactive DS: Summary Hospital Course Reason for hospitalization: Abdominal pain Hospital Course: Chief Complaint: Abdominal pain Narrative: Rohith Bardales is a 34 year old male who stated that he used to drink heavily. The patient stated he drank about 1 week ago very heavily, developed this abdominal pain shortly after that. distended and felt that there was a knot in his epigastric area, not able to drink anything in a couple days. He was nauseated but did not vomit or have any diarrhea not had any fever chills. Pain is in his upper abdomen. EXAMINATION: CT abdomen pelvis w con DATE: 05/16/2020 16:29 INDICATION: Right-sided abdominal pain and back pain. Constipation and nausea. TECHNIQUE: Computed tomography (CT) of the abdomen and pelvis was performed with 100 mL Omnipaque 350 intravenous contrast. Automated exposure control and iterative reconstruction technique were employed. The dose-length product was 1064.53 mGy-cm. COMPARISON: CT abdomen and pelvis 10/30/2012 FINDINGS: The visualized portions of the lung bases demonstrate mild atelectasis and scarring. There are mild tree-in-bud opacities in the lower lobes, right middle lobe, and lingula, consistent with inflammation versus infection. No pleural effusion. The heart size is normal. No pericardial effusion. The liver, gallbladder, spleen, pancreas, and adrenal glands are normal. There is cortical thinning of the kidneys. There are cysts in the kidneys measuring up to 5 mm. There are no dilated loops of bowel. The appendix is normal. There are no pathologically enlarged lymph nodes. There is no free intraperitoneal fluid. There is mild lumbar spondylosis. IMPRESSION: 1. No specific etiology for the patient's symptoms. 2. Mild bilateral lung disease that may be inflammation or infection. Note that this pattern is not suspicious for COVID-19 pneumonia. US right upper quadrant INDICATION: Pancreatitis PROCEDURE: Realtime right upper abdominal ultrasound. COMPARISON: No prior studies for comparison. FINDINGS: The pancreas is normal without focal mass or pancreatic ductal dilation. There is a small 5 mm echogenic mass right hepatic lobe, most likely benign hemangioma. There is normal directional flow in the portal vein. The gallbladder is normal without stones, gallbladder wall thickening or pericholecystic fluid. Common bile duct measures 2 mm. No sonographic Tariq's sign. Right renal echotexture is unremarkable. IMPRESSION: 1: 5 mm echogenic mass right hepatic lobe, most likely benign hemangioma. Recommend follow-up ultrasound in 6-12 months to assess stability. Patient was discharged home after EGD PPI for 6 weeks Will follow up with GI at the office 1) Acute pancreatitis: Code(s): K85.90 - Acute panc
[2020-05-18] MEDS: SUCRALFATE 1 GM TABLET PO (12:58)
== END 2020-05-18 14:05 | disposition home or self-care (01) | DRG 243 ==
LOC: ANHED 16:57 → ANHCPC 17:27
PROVIDERS: Internal Medicine Gastroenterology; Admitting Provider Internal Medicine; Emergency Provider Emergency Medicine; PCP Family Medicine; Visit Provider Internal Medicine
PROC: 0DJ08ZZ Inspection of Upper Intestinal Tract, Via Natural or Artificial Opening Endoscopic (ICD-10-PCS; CPT 43235; principal; 2020-05-18 08:45)
DX: K21.00 Gastro-esophageal reflux disease with esophagitis, without bleeding (principal); K29.70 Gastritis, unspecified, without bleeding; K44.9 Diaphragmatic hernia without obstruction or gangrene; K85.90 Acute pancreatitis without necrosis or infection, unspecified; R39.198 Other difficulties with micturition; J45.909 Unspecified asthma, uncomplicated; F17.210 Nicotine dependence, cigarettes, uncomplicated; Z28.21 Immunization not carried out because of patient refusal; Z79.899 Other long term (current) drug therapy
CPT/HCPCS: 36415; 71045; 74177; 76705; 80053; 80061; 81003; 83690; 85025; 87491; 87591; 88305; 94640; 96361; 96374; 96375; 99285; A9270; G0378; G0379; J1650; J1885; J2405; J2704; J7030; J7120; Q9967

== ENCOUNTER 2020-10-04 11:49 | Emergency (ER) | payer OTHER, SELFPAY ==
--- NOTE | ~2020-10-04 | CT_ITS ---
EXAMINATION: CT abdomen pelvis w con DATE: 10/04/2020 13:43 INDICATION: Upper abdominal pain. TECHNIQUE: Computed tomography (CT) of the abdomen and pelvis was performed with 100 mL Omnipaque 350 intravenous contrast. Automated exposure control and iterative reconstruction technique were employe d. The dose-length product was 1411.32 mGy-cm. COMPARISON: CT abdomen and pelvis 05/16/2020 FINDINGS: The visualized portions of the lung bases demonstrate mild atelectasis. Again seen are tree -in-bud opacities in the lungs bilaterally, likely infection or inflammation. No pleural effusion. Th e heart size is normal. No pericardial effusion. There is a small sliding hiatal hernia. The liver, g allbladder, spleen, pancreas, and adrenal glands are normal. There is cortical thinning of the kidney s. There are cysts in the kidneys measuring up to 5 mm on the right. There are no dilated loops of fartun wel. The appendix is normal. There is mild gastrohepatic and periportal lymphadenopathy. There is no free intraperitoneal fluid. There is mild osteoarthritis of the hips. IMPRESSION: 1. Mild bilateral lung disease, likely inflammation or infection. 2. Mild gastrohepatic and periportal lymphadenopathy, likely reactive. 3. Small sliding hiatal hernia. Reviewed, dictated and finalized at location B.
--- NOTE | ~2020-10-04 | XR_ITS ---
EXAMINATION: XR chest 1V portable INDICATION: Cough TECHNIQUE: Portable AP chest at 1408 hours COMPARISON: 05/17/2020 FINDINGS: There are chronic opacities of the upper lung zones, likely scarring. There is no pleural e ffusion or pneumothorax. The cardiomediastinal silhouette is normal. IMPRESSION: 1. No acute cardiopulmonary abnormality. Reviewed, dictated and finalized at location A.
[2020-10-04 12:11] VITALS: BP 138/88; PULSE 96; RESP 18; TEMP 36.6; O2SAT 98
[2020-10-04] MEDS: SODIUM CHLORIDE 0.9% IV 1,000 ML 999 ML IV CONT (12:56)
[2020-10-04] MEDS: ONDANSETRON INJ 4 MG/2 ML VIAL IV PUSH (12:57)
[2020-10-04] MEDS: PANTOPRAZOLE SODIUM IV 40 MG VIAL IV PUSH (12:57)
[2020-10-04] MEDS: MAG HYDROX/AL HYDROX/SIMETH 30 ML UDC PO (12:58)
[2020-10-04] MEDS: LIDOCAINE HCL 2% VISC SOLN 15 ML UDC 20 ML PO (12:58)
[2020-10-04 13:05] LABS: Basophils Percent Auto 0.4 % (0.2-1.2); Eosinophils Absolute Auto 0.4 K/mm3 (0-0.3); Eosinophils Percent Auto 3.5 % (0-4.4); Hematocrit 47.9 % (42.0-52.0); Hemoglobin 15.8 g/dL (14.0-18.0); Immature Granulocyte Absolute 0.05 K/mm3 (0.00-0.031); Immature Granulocyte Percent A 0.5 % (0-0.5); Lymphocytes Absolute Auto 2.49 K/mm3 (0.9-3.2); Mean Corpuscular Hemoglobin 29.7 pg (26-34); Mean Platelet Volume 9.5 fl (7.4-10.4); Monocytes Absolute Auto 1.2 K/mm3 (0.1-0.6); Monocytes Percent Auto 10.7 % (2.6-8.5); Neutrophils Absolute Auto 6.7 K/mm3 (1.3-6.7); Neutrophils Percent Auto 61.9 % (45.5-73.1); Platelet Count Result 245 k/mm3 (150-375); Red Blood Count 5.32 M/mm3 (4.6-6.20); Red Cell Distribution Width 11.9 % (11.5-14.5); White Blood Count 10.8 K/mm3 (4.5-10.0)
[2020-10-04 13:13] LABS: Alanine Aminotransferase 35 U/L (4-50); Albumin Level 4.5 g/dL (3.5-5.1); Alkaline Phosphatase 60 U/L (38-126); Anion Gap 8 mmol/L (8-16); Aspartate Amino Transferase 39 U/L (17-59); Bilirubin,Total 1.7 mg/dL (0.2-1.3); Blood Urea Nitrogen 10 mg/dL (9-20); Calcium 10.5 mg/dL (8.4-10.2); Carbon Dioxide 32 mmol/L (22-30); Chloride 100 mmol/L (98-107); Estimated CRCL calculation 119 ml/min; Estimated Glomerular Filt Rate > 60; Glucose 93 mg/dL (75-110); Lipase 45 U/L (23-300); Potassium 3.7 mmol/L (3.4-5.0); Sodium 140 mmol/L (137-145)
--- NOTE | 2020-10-04 13:35 | ED.GENADULT ---
HPI - General Adult General Chief complaint: Abdominal Pain <Jamison Bardales PA-C - Last Filed: 10/04/20 14:27> Stated complaint: Abd Pain <Jamison Bardales PA-C - Last Filed: 10/04/20 14:27> Time Seen by Provider: 10/04/20 12:13 <Jamison Bardales PA-C - Last Filed: 10/04/20 14:27> Source: patient and RN notes reviewed <DESI Irving Last Filed: 10/04/20 14:27> Mode of arrival: ambulatory <Jamison Bardales PA-C - Last Filed: 10/04/20 14:27> Limitations: no limitations <Jamison Bardales PA-C - Last Filed: 10/04/20 14:27> History of Present Illness HPI narrative: Patient is a 35-year-old male who presents with nausea and vomiting and tenderness across the upper abdomen patient notes he drank 2 alcoholic beverages on empty stomach yesterday had emesis several times and has had persistent pain in the upper abdomen since notes history of pancreatitis denies any diarrhea rectal bleeding hematemesis fever chills or other complaints has not had anything for his symptoms <Jamison Bardales PA-C - Last Filed: 10/04/20 14:27> Related Data Home medications: Home Medications Medication Instructions Recorded Confirmed albuterol sulfate [ProAir HFA] 90 mcg INHALATION BID 12/14/19 05/16/20 <Jamison Bardales PA-C - Last Filed: 10/04/20 14:27> Allergies/adverse reactions: Allergies Allergy/AdvReac Type Severity Reaction Status Date / Time coconut Allergy Swelling Verified 10/04/20 12:10 of Lip/Tongue/Throat lettuce Allergy Swelling Verified 10/04/20 12:10 of Lip/Tongue/Throat <Jamison Bardales PA-C - Last Filed: 10/04/20 14:27> Review of Systems Review of Systems: All systems reviewed & are unremarkable except as noted in HPI and below <Jamison Bardales PA-C - Last Filed: 10/04/20 14:27> PMFSH Past Medical History Medical History: Medical History Acute pancreatitis Anxiety Asthma Bronchitis Depression Drug abuse and dependence EtOH dependence Genital warts GERD (gastroesophageal reflux disease) Gonorrhea History of bipolar disorder IBS (irritable bowel syndrome) Nausea Tobacco abuse Urinary dysfunction <Jamison Bardales PA-C - Last Filed: 10/04/20 14:27> Surgical History Surgical History: Surgical History History of urologic surgery <Jamison Bardales PA-C - Last Filed: 10/04/20 14:27> Family History Family History: Family History Daughter Asthma Mother Hypertension <Jamison Bardales PA-C - Last Filed: 10/04/20 14:27> Social History Social History: Social History Social History: The patient is single and he has 3 children. He lives with his aunt and his anti is the durable power estate planning attorney for healthcare. The patient desires to be a full code. Patient states that he does use marijuana and that he used to drink heavily but only drinks on occasion. But he states when he does drink he is in large amounts. He stated that he drinks about 1 week ago. Smoking packs per day: 1 Smoking cigarettes per day: 20.0 Smoking status: Heavy tobacco smoker Tobacco type: cigarettes Alcohol intake: former Drinks per week: 2 Substance use: current Substance use type: marijuana, crack/cocaine and prescription drug Other substance usage details: promethazine with codeine Gender identity (if verbalized by the patient): Male Spiritual care concerns: No <Jamison Bardales PA-C - Last Filed: 10/04/20 14:27> Exam Narrative: Exam Narrative: GENERAL: Well-appearing, well-nourished, and in no acute distress. HEAD: Normocephalic, atraumatic. EYES: PERRLA and EOMI. ENT: Nares clear, no rhinorrhea or epistaxis. Mucous membranes moist. CHEST: Clear to auscultation. No
[2020-10-04 14:29] LABS: Add Urine Microscopic? YES; Appearance Urine Cloudy (Clear); Bacteria Urine Trace /hpf; Bilirubin Urine Negative (Negative); Blood Urine Negative (Negative); Color Urine Yellow (Yellow); Glucose Urine UA Negative (Negative); Ketones Urine Negative (Negative); Leukocyte Esterase Ur Negative LEU/UL (Negative); Mucus Urine Rare /lpf; Nitrate Urine Negative (Negative); Protein Urine Negative (Negative); RBC Urine 0-2 /hpf (0-2); Specific Grav Ur 1.015 (1.001-1.035); Urobilinogen Urine Negative mg/dL (<2.0); WBC Urine 0-3 /hpf
[2020-10-04 14:35] VITALS: BP 123/87; PULSE 80; RESP 18; O2SAT 99
== END 2020-10-04 14:40 | disposition home or self-care (01) ==
PROVIDERS: Emergency Medicine Emergency Medical Services; Emergency Provider General Practice; PCP Family Medicine
DX: R10.10 Upper abdominal pain, unspecified (principal); J45.909 Unspecified asthma, uncomplicated; K21.9 Gastro-esophageal reflux disease without esophagitis; K58.9 Irritable bowel syndrome, unspecified; F17.210 Nicotine dependence, cigarettes, uncomplicated; J98.4 Other disorders of lung; K44.9 Diaphragmatic hernia without obstruction or gangrene
CPT/HCPCS: 36415; 71045; 74177; 80048; 80076; 81001; 83690; 85025; 87491; 87591; 96361; 96374; 96375; 99284; A9270; C9113; J0131; J2405; J7030; Q9967